=== PATIENT | male | born 1945 | race Caucasian/White ===

== ENCOUNTER 2019-01-12 16:58 | Observation (INO) | payer MEDICARE ==
[2019-01-12] MEDS ORDERED: Aspirin Chewable 81 MG TAB ONE (17:55)
[2019-01-12] MEDS ORDERED: Nitroglycerin 2% Ointment 1 INCH/1 GM Packet ONE (17:55)
[2019-01-12 19:08] LABS: CKMB 2.7 ng/mL (0-6.6)
[2019-01-12] MEDS ORDERED: Acetaminophen 325 MG TAB PO PRN (19:37)
[2019-01-12] MEDS ORDERED: Ondansetron PF 4 MG/2 ML Vial IVP PRN (19:37)
[2019-01-12] MEDS ORDERED: Dextrose 5% in Water 1,000 ML IV PRN (19:49)
[2019-01-12] MEDS ORDERED: HumaLOG 300 UNITS/3 ML VIAL SC PRN (19:49)
[2019-01-12] MEDS ORDERED: Dextrose 50% Abboject 50 ML SYRINGE SLOW IVP PRN (19:49)
[2019-01-12] MEDS ORDERED: Furosemide 40 MG/4 ML VIAL SLOW IVP SCH (20:00)
[2019-01-12] MEDS ORDERED: cefTRIAXone\\ROCEPHIN 1 GM in Sodium Chloride 0.9% 100 ML IVPB SCH (21:00)
[2019-01-12] MEDS: Heparin 5,000 UNITS/ML VIAL SC SCH (21:05)
[2019-01-12 21:43] LABS: Troponin I 0.038 ng/mL (< 0.028)
[2019-01-12 22:57] VITALS: BMI 39.4
--- NOTE | 2019-01-12 23:04 | HP ---
CHIEF COMPLAINT: Shortness of breath. HISTORY OF PRESENT ILLNESS: The patient is a 73-year-old male with a history of severe cardiac disease. The patient actually lives in [place] and is here visiting. I do not have any great details on his history. Apparently, he had a heart catheterization about 3 weeks ago and was told that he only had one viable artery, but apparently had some capillary collaterals in place. He has a history of bypass surgery many years ago. The patient actually has recently been picked up by his daughter in [place] and driven back here to [place] for a 3-week stay, has been here about 6 days. Over the last several days, he has had some increasing shortness of breath and dyspnea on exertion. He had a cough that started yesterday. The cough is productive of a whitish sputum. He says he has been "taking aspirin like crazy." REVIEW OF SYSTEMS: He denies fevers or chills, sinus congestion, chest pain, or significant peripheral edema. All other systems reviewed. All pertinent positives and negatives noted. PAST MEDICAL HISTORY: Coronary artery disease, chronic kidney disease, diabetes, hypertension, questionable liver disease. PAST SURGICAL HISTORY: Coronary bypass graft, spine surgery x2. FAMILY HISTORY: Father at 45 of an AL. Mother at 35 of cancer. SOCIAL HISTORY: The patient reports he used to smoke quite heavily, but quit over 40 years ago. No alcohol. No drugs. 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 ALLERGIES: PENICILLIN. HOME MEDICATIONS: The patient is not entirely sure of his medication list. He believes he takes 1. Carvedilol 6.25 p.o. daily. 2. Glipizide 10 mg daily. 3. Aspirin 325 daily. 4. Levothyroxine 200 mcg daily. 5. Allopurinol 300 mg a day. 6. Gabapentin 300 mg daily. PHYSICAL EXAMINATION: VITAL SIGNS: Initial vital signs BP 118/69, pulse 87, respirations 24, temperature is 98.3, O2 saturation is 97% on 3 L of oxygen which the patient wears at home. GENERAL APPEARANCE: Age-appropriate male. He is obese. He is mildly tachypneic. He is not excited about being in the hospital, but not distressed. HEENT: PERRL. Edentulous. No OP lesions. NECK: Supple and symmetric. HEART: Regular rate and rhythm. LUNGS: Diminished throughout without significant wheezes. Few scattered rales present. ABDOMEN: Obese, soft, nontender, and nondistended. Positive bowel sounds. EXTREMITIES: Have 1+ pitting pretibial edema bilaterally with no erythema or palpable cords. He has fairly diffuse superficial varicosities. LABORATORY DATA: White count 9.3, hemoglobin 12.3, platelets 172. D-dimer 1.32. Sodium 140, potassium 4.8, chloride 95, CO2 of 34, BUN 54, creatinine is 2.81, glucose 154. AST 18, ALT 18. Troponin 0.038, subsequent 0.039. BNP 844. Chest x-ray shows cardiomegaly with mild pulmonary vascular congestion. HOSPITAL COURSE: The patient was originally seen in [facility]. There, he received Lasix. His elevated D-dimer was noted and was of concern given his recent car trip. The patient's creatinine precluded the use of a CT scan. Therefore, he was sent here in order to have a V/Q scan done in the emergency department here. The patient has received Nitro-Bid, aspirin, and DuoNeb. IMPRESSION AND PLAN: 1. Congestive heart failure exacerbation, relatively mild. He has received Lasix. Give him another dose now. We will continue his home med the best we can elucidate them. 2. Likely bronchitis with chronic obstructive pulmonary disease exacerbation. We will give the patient IV antibiotics for now. Continue DuoNeb as needed. Continue the patient's home oxygen. 3. Elevated D-dimer, unclear etiology. We will try to get the V/Q scan. The patient has had some trouble lying flat in the past because of his spinal surgeries. We will see if we can make that happen. We will get some lower extremity Dopplers as well. 4. History of coronary artery disease. Continue aspirin, beta blockers. 5. Diabetes mellitus. Continue home regimen once that is known. In the meantime, we will continue Accu-Cheks, sliding scale and a diabetic diet. 6. Chronic kidney disease, appears to be stage 3, stable. Job ID: [id number]
--- NOTE | 2019-01-12 23:26 | ULT ---
US Venous Doppler Bilat HISTORY: Elevated d-dimer. Leg pain. COMPARISON: None. FINDINGS: Real-time color Doppler evaluation of the right and left lower extremities were performed f rom groin to calf. This includes evaluation of the common femoral, superficial and profunda femoral, saphenous, popliteal and posterior tibial veins. This shows a patent deep venous system. The re is normal compressibility and augmentation. IMPRESSION: No evidence of DVT of either lower extremity.
[2019-01-13 04:58] LABS: Anion Gap 15 mmol/L (10-20); BUN (Urea Nitrogen) 54 mg/dL (8.4-25.7); Calc. Creatinine Clearance 39 mL/min (70-130); Calcium 8.4 mg/dL (7.8-10.44); Carbon Dioxide 36 mmol/L (23-31); Chloride 94 mmol/L (98-107); Estimated GFR-MDRD 25; Glucose 134 mg/dL (83-110); Potassium 4.5 mmol/L (3.5-5.1); Sodium 140 mmol/L (136-145)
[2019-01-13] MEDS: Heparin 5,000 UNITS/ML VIAL SC SCH (08:24)
[2019-01-13] MEDS: Carvedilol 6.25 MG TAB PO SCH ×2 (08:25→16:15)
[2019-01-13] MEDS ORDERED: Aspirin 325 MG TAB PO SCH (09:00)
--- NOTE | 2019-01-13 11:34 | NM ---
VQ SCAN: HISTORY: Dyspnea TECHNIQUE: A ventilation/perfusion scan was performed using 18 mCi xenon-133 by inhalation for the ventilation s tudy followed by the intravenous administration of 6 mCi technetium 99m-MAA for the perfusion scan. CORRELATION: Chest radiograph from previous day. FINDINGS: There are matched defects in the lower lobes. There is tracer retention on the washout phase of the ventilation scan, compatible with COPD. IMPRESSION: Intermediate probability for pulmonary embolism. Further evaluation with venous Doppler ultrasound of both lower extremities and CT pulmonary angiogra m are recommended.
[2019-01-13] MEDS ORDERED: Ibuprofen 200 MG TAB PO PRN (15:49)
[2019-01-13 16:24] VITALS: BP 127/70; TEMP 98.2
--- NOTE | 2019-01-14 08:27 | DIS ---
DATE OF ADMISSION: 01/12/2019 DATE OF DISCHARGE: 01/13/2019 DISCHARGE DIAGNOSES: 1. Shortness of breath. 2. Elevated D-dimer. 3. History of chronic obstructive pulmonary disease with oxygen dependence. 4. History of ischemic cardiomyopathy. 5. History of coronary artery disease. 6. Hypothyroidism. 7. Diabetes mellitus. 8. Chronic kidney disease, stage 3. HISTORY: The patient is a 73-year-old male, who lives in [place], who has chronic COPD with oxygen dependence and chronic ischemic cardiomyopathy, who drove to [place] with his daughter for a 3-week visit after being here a couple days. The patient started developing some dyspnea on exertion and some cough that was productive of whitish sputum, did not have significant fevers or chills. He presented to the [facility], had a negative chest x-ray, had elevated D- dimer but because of his chronic kidney disease, could not have CT. He was subsequently transferred to this facility somewhat reluctantly in order to undergo V/Q scan here. HOSPITAL COURSE: The patient was admitted. He was continued on nebulizer treatments. The patient reported that he had forgotten to bring his nebulizer machine with him. He had some IV antibiotics with Rocephin. Dopplers of lower extremities were negative. He was able to get the V/Q scan, which was indeterminate with bilateral lower lobe matched defects. Given the risk factor of car ride with elevated D-dimer, his symptoms in the indeterminate or intermediate. V/Q scan consulted. Pulmonology saw the patient, felt like he likely did not have pulmonary emboli and was safe for discharge. He prescribed the patient a neb machine and appropriate medications. The patient did receive initial dose of Lasix in the emergency department at [facility], received a second dose while he was admitted here, did not have substantial response to that and albeit it seemed to improve his situation. However, the patient felt like his breathing was close to baseline. PHYSICAL EXAMINATION: VITAL SIGNS: On the day of discharge, temperature is 98.2, pulse 85, respirations 18, O2 saturation 98% on room air, BP 127/70. GENERAL APPEARANCE: Age-appropriate male, in no distress. He is awake, alert, oriented, pleasant, and cooperative. HEART: Regular without significant murmur. LUNGS: Diminished throughout with mild bibasilar rales. ABDOMEN: Soft, nontender, and nondistended. Positive bowel sounds. No masses. No organomegaly. EXTREMITIES: Trace 1+ bilateral pretibial pitting edema. DISPOSITION: The patient is discharged home. MEDICATIONS: He will continue his usual home medication regimen includin. Gabapentin. 2. Isosorbide. 3. Allopurinol. 4. Levothyroxine. 5. Carvedilol. 6. Aspirin. 7. Bumetanide. 8. Glipizide. 9. He will additionally have prednisone 20 mg two p.o. daily for 5 days and one p.o. daily until he is able to return to his physician in [place]. 10. He will continue with doxycycline 100 mg one p.o. b.i.d. for 5 days. DISCHARGE INSTRUCTIONS: He can return to the hospital if he have any problems prior to that time. He will be on a heart healthy diet and his activity is otherwise as tolerated. Time dedicated to discharge activities, including face to face time with the patient, was 38 min. Job ID: [id number] MTDD
--- NOTE | 2019-01-14 22:37 | CON ---
DATE OF CONSULTATION: 01/13/2019 HISTORY OF PRESENT ILLNESS: Mr. Foster is a 73-year-old male from [place]. He drove over here with his daughter. He forgot his nebulizer. He has underlying COPD. He has significant vascular disease. Apparently, he is living off 1 coronary. He has had bypass surgery in the past. He came here to stay with his daughter for 3 weeks. He presented with several days of cough and shortness of breath. V/Q scan was done because of a D-dimer ordered in [facility]. I was consulted to review the V/ Q. PAST MEDICAL HISTORY: Remarkable for vascular disease, chronic kidney disease, diabetes, hypertension, coronary artery bypass grafting, 2 back surgeries and ? liver disease. Both parents young. FAMILY HISTORY: Father of 45. Mother at 35. SOCIAL HISTORY: He was a smoker when he was young man, but quit in his 30s. He denies having asthma when he was young. He is a do not resuscitate status. ALLERGIES: HE REPORTS AN ALLERGY TO PENICILLIN. MEDICATIONS: Reviewed. REVIEW OF SYSTEMS: 10 point review of systems otherwise negative. He says he is fine. He needs to go home. He says he feels much better than he did at presentation. PHYSICAL EXAMINATION: VITAL SIGNS: He is afebrile, heart rate is 85, respiratory rate is 18, oximetry is 98% on room air, and blood pressure 127/70. HEENT: Pupils are equal. Sclerae anicteric. NECK: Supple. No lymphadenopathy. LUNGS: Clear. HEART: Regular rhythm. S1 and S2 are normal. ABDOMEN: Soft and nontender. EXTREMITIES: Without clubbing, cyanosis, or edema. He has stasis changes on his lower legs. LABORATORY DATA: Sodium 140, potassium 4.5, chloride 94, bicarb 36, BUN 54, and creatinine 2.58. There is no CBC done here. V/Q scan shows matched defects in his lower lung padgett. Dopplers of his legs are negative. IMPRESSION: Indeterminate ventilation perfusion study. Unfortunately, with his renal function, it is not worth the risk to do a pulmonary angiogram. Now, my index of suspicion for a thromboembolic event is extremely low given that he is presenting with what he describes as being 1 of his usual flare-ups of his chronic obstructive pulmonary disease. With regard to the diagnosis of chronic obstructive pulmonary disease, he really did not smoke enough probably to get chronic obstructive pulmonary disease given that he quit in his 30s unless he has alpha-1 antitrypsin deficiency. If he was staying in town, I would work him up for that, but he has a doctor at home and is only going to be in the area for another couple of weeks. 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 I have written a prescription for nebulizer and DuoNeb to use 4 times a day. I also recommended for Dr. Milian, prednisone 40 mg for 3-4 days, then 20 mg until he gets back to [place], then tapering off. Probably treating with antibiotics for 3-5 days more. I will see him while he is in town if necessary. I have given his daughter my phone number. Should he decline prior to driving back to [place], I will be happy to work him in and see if we can get him feeling better, so he can make the drive. I appreciate the call to see this pleasant gentleman. This was a 50 minute consult with 50% of time spent on unit coordinating care Job ID: [id number] LUIS
--- NOTE | 2019-01-16 17:08 | EKG ---
Test Reason : Blood Pressure : / mmHG Vent. Rate : 086 BPM Atrial Rate : 086 BPM P-R Int : 208 ms QRS Dur : 170 ms QT Int : 400 ms P-R-T Axes : 042 010 130 degrees QTc Int : 478 ms Normal sinus rhythm Left bundle branch block Abnormal ECG Confirmed by MAX MISHRA DO ([id number]), associate editor VIKTOR DOMINGUEZ ([id number] on 01/16/2019 5:07:51 PM Referred By: Confirmed By:MAX MISHRA DO
== END 2019-01-13 18:36 | disposition home or self-care (01) ==
LOC: ERS 16:58 → 2NO 19:32 → INTOOBSV 19:32
PROVIDERS: ADMIT Internal Medicine; ATTEND Internal Medicine
DX: I13.0 Hypertensive heart and chronic kidney disease with heart failure and stage 1 through stage 4 chronic kidney disease, or unspecified chronic kidney disease (principal); I50.9 Heart failure, unspecified; N18.3 Chronic kidney disease, stage 3 (moderate); E11.22 Type 2 diabetes mellitus with diabetic chronic kidney disease; R79.1 Abnormal coagulation profile; J44.9 Chronic obstructive pulmonary disease, unspecified; E03.9 Hypothyroidism, unspecified; I25.5 Ischemic cardiomyopathy; I25.10 Atherosclerotic heart disease of native coronary artery without angina pectoris; I44.7 Left bundle-branch block, unspecified; Z99.81 Dependence on supplemental oxygen; Z95.1 Presence of aortocoronary bypass graft; Z87.891 Personal history of nicotine dependence; Z88.0 Allergy status to penicillin; Z79.82 Long term (current) use of aspirin; Z79.4 Long term (current) use of insulin; Z79.899 Other long term (current) drug therapy
CPT/HCPCS: 78582; 80048; 82553; 82962 ×2; 84484 ×2; 93005; 93970; 94640; 99285; A9540; A9558; G0378; 36415; 36416; J0696; J1644; J1940; J3490; J7620